=== PATIENT | female | born 1980 | race Caucasian/White ===

== ENCOUNTER → 2021-01-04 | Outpatient (CLI) | payer OTHER | LOC: LAB 07:36 | PROVIDERS: ATTEND Anesthesiology | DX: Z01.812 Encounter for preprocedural laboratory examination (principal); Z20.822 Contact with and (suspected) exposure to COVID-19 ==

== ENCOUNTER 2021-03-21 09:19 | Emergency (ER) | payer OTHER ==
[~2021-03-21] VITALS: Ht 170.2 cm; Wt 68.0 kg
[2021-03-21 09:44] LABS: URINE BILIRUBIN NEGATIVE (Negative); URINE BLOOD 3+ (Negative); URINE CLARITY CLEAR; URINE COLOR YELLOW; URINE GLUCOSE-RANDOM* NEGATIVE (Negative); URINE KETONES NEGATIVE (Negative); URINE LEUKOCYTES-REFLEX NEGATIVE (Negative); URINE NITRITE-REFLEX NEGATIVE (Negative); URINE PROTEIN (DIPSTICK) NEGATIVE (Negative); URINE SPECIFIC GRAVITY <= 1.005 (1.005-1.035); URINE UROBILINOGEN 0.2 E.U./dl (0.2-1.0)
[2021-03-21 10:02] LABS: CASTS None Seen /LPF (None Seen); CRYSTALS None Seen /LPF (None Seen); SQUAMOUS 4-10 Moderate /LPF (0-3)
[2021-03-21 10:03] LABS: URINE RBC 3-10 Few /HPF (NONE SEEN); URINE WBC-REFLEX 0-5 Rare /HPF (0-5)
[2021-03-21 10:04] LABS: BACTERIA-REFLEX 1-9 Few /HPF (None Seen)
[2021-03-21 10:08] LABS: ABSOLUTE NEUTROPHILS 4.3 thou/uL (1.4-8.2); BASOPHILS 1.3 % (0.0-2.0); EOSINOPHILS 2.5 % (0.0-3.0); HEMATOCRIT 39.3 % (37.0-47.0); HEMOGLOBIN 13.1 gm/dL (12.0-15.0); LYMPHOCYTES 35.3 % (24.0-44.0); MCH 31.7 pg (26.0-34.0); MCHC 33.3 g/dL (28.0-37.0); MCV 95.1 fL (80.0-100.0); MONOCYTES 6.6 % (1.0-8.0); PLATELET COUNT 292 thou/uL (150-400); POLYS 54.3 % (36.0-66.0); RBC 4.14 mil/uL (4.20-5.00)
[2021-03-21 10:24] LABS: CALCIUM 9.1 mg/dL (8.5-10.1); CREATININE 0.8 mg/dL (0.6-1.0); POTASSIUM 3.7 mmol/L (3.5-5.1)
[2021-03-21 10:30] LABS: TOTAL BILIRUBIN 0.3 mg/dL (0.2-1.0); TOTAL PROTEIN 7.3 g/dL (6.4-8.2)
[2021-03-21] MEDS ORDERED: NORCO5 PO (11:17)
[2021-03-21 11:35] VITALS: BP 124/68
== END 2021-03-21 11:36 | disposition home or self-care (01) ==
LOC: ER 09:19
PROVIDERS: Emergency Medicine
DX: M51.26 Other intervertebral disc displacement, lumbar region (principal); N83.201 Unspecified ovarian cyst, right side